=== PATIENT | female | born 1975 | race Caucasian/White ===

== ENCOUNTER 2018-07-20 15:00 | Outpatient (CLI) | payer BC | END 2018-07-20 15:01 | disposition home or self-care (01) | LOC: DTY/OP 15:00 | PROVIDERS: ATTEND Surgery | DX: I10 Essential (primary) hypertension (principal) | CPT/HCPCS: 97802 ==

== ENCOUNTER 2018-12-17 06:40 | Outpatient (CLI) | payer BC ==
[2018-12-17 10:20] LABS: #Basophils 0.1 thou/uL (0.0-0.2); #Eosinphils 0.2 thou/uL (0.0-0.7); #Lymphocytes 1.8 thou/uL (1.20-3.40); #Monocytes 0.8 thou/uL (0.11-0.59); #Neutrophils 5.5 thou/uL (1.40-6.50); %Basophils 1.1 % (0.0-1.0); %Eosinophils 2.8 % (0.0-10.0); %Lymphocytes 21.1 % (21.0-51.0); %Monocytes 9.4 % (0.0-10.0); %Neutrophils 65.6 % (42.0-75.0); Hemoglobin 13.9 g/dL (12.0-16.0); Mean Corpuscular HGB CONC 31.2 g/dL (32.0-36.0); Mean Corpuscular Hemoglobin 25.8 pg (27.0-31.0); Mean Corpuscular Volume 82.7 fL (78.0-98.0); Platelet Count 229 thou/uL (130-400); RBC Distribution Width 14.8 % (11.5-14.5); Red Blood Cell (RBC) Count 5.39 mill/uL (4.20-5.40); White Blood Cell (WBC) Count 8.4 thou/uL (4.8-10.8)
[2018-12-17 10:35] LABS: Hemoglobin A1c 7.7 % (4.0-6.0)
[2018-12-17 10:47] LABS: ALT (SGPT) 18 U/L (8-55); AST (SGOT) 29 U/L (5-34); Albumin 3.7 g/dL (3.5-5.0); Alkaline Phosphatase 59 U/L (40-150); Anion Gap 10 mmol/L (10-20); BUN (Urea Nitrogen) 12 mg/dL (7.0-18.7); Bilirubin, Direct 0.2 mg/dL (0.1-0.3); Bilirubin, Total 0.4 mg/dL (0.2-1.2); Calc. Creatinine Clearance 0 mL/min (70-130); Calcium 9.5 mg/dL (7.8-10.44); Carbon Dioxide 29 mmol/L (22-29); Chloride 100 mmol/L (98-107); Estimated GFR-MDRD 84; Globulin 3.5 g/dL (2.4-3.5); Glucose 137 mg/dL (70-105); Potassium 3.9 mmol/L (3.5-5.1); Protein, Total 7.2 g/dL (6.0-8.3); Sodium 135 mmol/L (136-145)
--- NOTE | 2018-12-17 11:50 | RAD ---
TWO VIEWS CHEST: DATE: 12/17/2018. PROVIDED CLINICAL HISTORY: Preop. FINDINGS: No comparisons. Cardiac silhouette appears enlarged. No focal consolidation, pleural fluid, or pneu mothorax apparent. IMPRESSION: Cardiomegaly without evidence for an acute cardiopulmonary process. POS: IJLL
--- NOTE | 2018-12-22 12:42 | EKG ---
Test Reason : Blood Pressure : / mmHG Vent. Rate : 076 BPM Atrial Rate : 076 BPM P-R Int : 154 ms QRS Dur : 094 ms QT Int : 400 ms P-R-T Axes : 060 102 043 degrees QTc Int : 450 ms Normal sinus rhythm Incomplete right bundle branch block Possible Right ventricular hypertrophy Abnormal ECG No previous ECGs available Confirmed by DR. Becky BECKETT ([id number]) on 12/22/2018 12:42:07 PM Referred By: BRITTNY Confirmed By:DR. Becky BECKETT
== END 2018-12-17 06:41 | disposition home or self-care (01) ==
LOC: LABBT 06:40 → SDC 06:41
PROVIDERS: ATTEND Surgery
DX: Z01.818 Encounter for other preprocedural examination (principal); E66.01 Morbid (severe) obesity due to excess calories
CPT/HCPCS: 71046; 80053; 80076; 83036; 85025; 93005; 93010

== ENCOUNTER 2018-12-17 09:30 | Inpatient (IN) | payer BC ==
[2018-12-17 09:40] VITALS: BMI 52.8
[2018-12-21] MEDS ORDERED: Heparin 5,000 UNITS/ML VIAL ONE (08:36)
[2018-12-21] MEDS ORDERED: CEFAZOLIN 2 GM/50 ML BAG ONE (08:36)
[2018-12-21] MEDS ORDERED: Scopolamine 1.5 mg/72 hour Patch ONE (08:37)
[2018-12-21] MEDS ORDERED: Midazolam HCl 2 mg/2 ml Vial ONE (09:33)
[2018-12-21] MEDS ORDERED: Fentanyl 100 MCG/2 ML VIAL ONE ×3 (09:49→12:24)
[2018-12-21] MEDS ORDERED: Bupivacaine HCl 0.5%/Epinephrine 1:200,000/PF 30 ml Vial ONE (09:50)
[2018-12-21] MEDS ORDERED: Lidocaine 1% PF 5 ML VIAL ONE (10:51)
[2018-12-21] MEDS ORDERED: Dexamethasone 20 MG/5 ML VIAL ONE (10:51)
[2018-12-21] MEDS ORDERED: PROPOFOL 200 MG/20 ML VIAL ONE (10:51)
[2018-12-21] MEDS ORDERED: Rocuronium Bromide 10 MG/ML (10ML VIAL) ONE (10:51)
[2018-12-21] MEDS ORDERED: Ondansetron PF 4 MG/2 ML Vial ONE (10:51)
[2018-12-21] MEDS ORDERED: Ondansetron HCl/PF 4 MG/2 ML Vial IVP PRN (11:14)
[2018-12-21] MEDS ORDERED: Promethazine HCl 25 MG/ML VIAL IM PRN ×3 (11:14→14:02)
[2018-12-21] MEDS ORDERED: Promethazine HCl 25 MG/ML VIAL SLOW IVP PRN (11:14)
[2018-12-21] MEDS ORDERED: Promethazine HCl 25 MG/ML VIAL ONE (11:39)
[2018-12-21] MEDS ORDERED: Zolpidem Tartrate 5 MG TAB PO PRN (12:02)
[2018-12-21] MEDS ORDERED: diphenhydrAMINE 25 MG CAP PO PRN (12:02)
[2018-12-21] MEDS ORDERED: diphenhydrAMINE 50 MG/ML VIAL IM PRN (12:02)
[2018-12-21] MEDS ORDERED: fentaNYL Citrate/PF 2,000 MCG in Sodium Chloride 0.9% 60 ML IV PRN (12:02)
[2018-12-21] MEDS ORDERED: Naloxone HCl 0.4 mg/ml Vial IV PRN (12:02)
[2018-12-21] MEDS ORDERED: Ondansetron PF 4 MG/2 ML Vial IVP PRN ×2 (12:02→14:02)
[2018-12-21] MEDS ORDERED: diphenhydrAMINE 50 MG/ML VIAL IVP PRN ×2 (12:02→14:02)
--- NOTE | 2018-12-21 12:12 | OP ---
DATE OF PROCEDURE: 12/21/2018 PREOPERATIVE DIAGNOSES: 1. Morbid obesity with a body mass index of 52. 2. Hypertension. POSTOPERATIVE DIAGNOSES: 1. Morbid obesity with a body mass index of 52. 2. Hypertension. PROCEDURES PERFORMED: 1. Laparoscopic sleeve gastrectomy with [place] staple line reinforcements and 38-Malian bougie. 2. Esophagogastroduodenoscopy. ANESTHESIA: General. COMPLICATIONS: None. SPECIMENS: Stomach. FINDINGS: Normal postoperative EGD. DESCRIPTION OF PROCEDURE: The patient was taken to the operating room and laid supine on the operating room table. After general anesthetic was obtained, the arms and legs were double strapped to bariatric table. OG tube was used to decompress the stomach. Left subcostal 5 mm Optiview trocar was placed in usual fashion and high-flow pneumoperitoneum was obtained. Left and right abdominal 12 mm ports as well as a right subcostal 5 mm port were placed in direct visualization. 5 mm incision was made at the xiphoid and Sahra was used to raise the liver off the GE junction. Short gastrics were taken down from mid stomach to the left diomedes of the diaphragm using LigaSure. Left diomedes, angle of His, fundus of the stomach were completely dissected. Short gastrics were taken down to a distance of 6 cm proximal to the pylorus. Multiple loads of the Mercedes stapling device were used to perform the sleeve. A 38-bougie was brought in and its tip left in the antrum of the stomach. The first fire was up from 6 cm proximal to the pylorus angled up towards the incisura. Care was taken to avoid being too close to incisura. Multiple loads were then fired up along the bougie. Stomach was completely transected at the angle of His. Stomach was removed from the left abdominal incision. This fascial defect was closed using GraNee needle and 0 Vicryl tie. There was no bleeding on the staple line. No injury to any intraabdominal structures. All port sites were infiltrated using local anesthetic. EGD scope was passed through esophagus and stomach to the level of duodenum without obstruction or stricture. There was no air leakage through the staple line. EGD scope was used to decompress the stomach, it was pulled and removed. The Sahra retractor was removed under direct visualization without bleeding. All ports were removed under direct visualization without bleeding. Pneumoperitoneum was let down. The Vicryl was used to close the fascial defect from the left abdominal incision. All incisions were irrigated and closed using 4-0 Monocryl and Dermabond. The patient was sent to Recovery in stable condition. All instrument counts, needle counts, and lap counts were correct. Job ID: [id number]
[2018-12-21] MEDS ORDERED: Communication Order-Pharmacy FS SCH (12:15)
[2018-12-21] MEDS ORDERED: Dextrose 5% in Water 1,000 ML IV PRN (14:02)
[2018-12-21] MEDS ORDERED: hydrALAZINE 20 MG/ML VIAL SLOW IVP PRN (14:02)
[2018-12-21] MEDS ORDERED: Dextrose 50% Abboject 50 ML SYRINGE SLOW IVP PRN (14:02)
[2018-12-21] MEDS ORDERED: Hydrocodone-Acetamin 15 ML UDCUP PO PRN (14:02)
[2018-12-21] MEDS ORDERED: Sodium Chloride 0.9% (PF) 10 ML VIAL FS PRN (14:24)
[2018-12-21] MEDS: D5 1/2 NS w/20 mEq KCL 1,000 ML IV SCH ×2 (16:18→23:21)
[2018-12-21] MEDS: Acetaminophen 1,000 MG in Premix Bag 1 BAG IVPB SCH ×2 (17:56→23:22)
[2018-12-21] MEDS ORDERED: Enoxaparin Sodium 40 MG/0.4 ML SYRINGE SC SCH (21:00)
[2018-12-22 05:11] LABS: #Lymphocytes 1.1 thou/uL (1.20-3.40); #Monocytes 1.2 thou/uL (0.11-0.59); #Neutrophils 10.5 thou/uL (1.40-6.50); %Basophils 0.1 % (0.0-1.0); %Eosinophils 0.1 % (0.0-10.0); %Lymphocytes 8.4 % (21.0-51.0); %Monocytes 9.5 % (0.0-10.0); %Neutrophils 81.9 % (42.0-75.0); Hemoglobin 13.5 g/dL (12.0-16.0); Mean Corpuscular HGB CONC 30.9 g/dL (32.0-36.0); Mean Corpuscular Hemoglobin 26.2 pg (27.0-31.0); Mean Corpuscular Volume 84.8 fL (78.0-98.0); Mean Platelet Volume 7.3 fL (7.4-10.4); Platelet Count 252 thou/uL (130-400); RBC Distribution Width 14.6 % (11.5-14.5); Red Blood Cell (RBC) Count 5.17 mill/uL (4.20-5.40); White Blood Cell (WBC) Count 12.8 thou/uL (4.8-10.8)
[2018-12-22] MEDS: Acetaminophen 1,000 MG in Premix Bag 1 BAG IVPB SCH ×2 (05:20→11:43)
[2018-12-22 05:28] LABS: Anion Gap 13 mmol/L (10-20); BUN (Urea Nitrogen) 7 mg/dL (7.0-18.7); Calc. Creatinine Clearance 207 mL/min (70-130); Calcium 8.6 mg/dL (7.8-10.44); Carbon Dioxide 24 mmol/L (22-29); Chloride 99 mmol/L (98-107); Estimated GFR-MDRD 80; Glucose 160 mg/dL (70-105); Potassium 5.3 mmol/L (3.5-5.1); Sodium 131 mmol/L (136-145)
[2018-12-22] MEDS: D5 1/2 NS w/20 mEq KCL 1,000 ML IV SCH (08:27)
[2018-12-22] MEDS ORDERED: Estradiol 1 MG TAB PO SCH (09:00)
[2018-12-22] MEDS ORDERED: Losartan 25 MG TAB PO SCH (09:00)
[2018-12-22] MEDS ORDERED: Pantoprazole 40 MG VIAL IVP SCH (09:00)
[2018-12-22] MEDS ORDERED: Hydrocodone-Acetamin 15 ML UDCUP PO PRN (09:19)
--- NOTE | 2018-12-22 11:39 | DIS ---
DATE OF ADMISSION: 12/21/2018 DATE OF DISCHARGE: 12/22/2018 ADMIT DIAGNOSES: Morbid obesity and hypertension. DISCHARGE DIAGNOSES: Morbid obesity and hypertension. PROCEDURES: Laparoscopic sleeve gastrectomy by Dr. Gonzalez without complication. CONDITION ON DISCHARGE: Improved. STAFF: Campos Gonzalez MD HOSPITAL COURSE: On postop day 1, the patient is doing well. She is tolerating a liquid diet. She is ambulated. She is discharged home. She will follow up with me in 2 weeks. Job ID: [id number]
[2018-12-22 11:42] VITALS: BP 113/73; TEMP 98.4
== END 2018-12-22 14:05 | disposition home or self-care (01) | DRG 621 ==
LOC: SURG A 12-21 08:08
PROVIDERS: ADMIT Surgery; ATTEND Surgery
PROC: 0DB64Z3 Excision of Stomach, Percutaneous Endoscopic Approach, Vertical (ICD-10-PCS; principal; 2018-12-21)
PROC: 0DJ08ZZ Inspection of Upper Intestinal Tract, Via Natural or Artificial Opening Endoscopic (ICD-10-PCS; 2018-12-21)
DX: E66.01 Morbid (severe) obesity due to excess calories (principal); I10 Essential (primary) hypertension; Z68.43 Body mass index [BMI] 50.0-59.9, adult
CPT/HCPCS: 36415; 80048; 85025; 88307; 88312; C9113; J0131; J0670; J1644; J1650; J2250; J2405; J2550; J3010; J7050

== ENCOUNTER 2019-01-25 10:14 | Day surgery (SDC) | payer BC | END 2019-01-25 11:43 | disposition home or self-care (01) | LOC: SCSER/OP 10:14 | PROVIDERS: ATTEND Surgery | DX: Z29.9 Encounter for prophylactic measures, unspecified (principal); Z79.899 Other long term (current) drug therapy ==

== ENCOUNTER 2020-04-11 12:16 | Outpatient (CLI) | payer BC ==
--- NOTE | 2020-04-11 13:03 | MMO ---
Bilateral MAMMO Bilat Screen [facility]. CLINICAL HISTORY: Patient is 45 years old and is seen for screening. The patient has no family history of breast cancer. The patient has no personal history of cancer. VIEWS: The views performed were: bilateral craniocaudal with tomosynthesis and bilateral mediolateral oblique with tomosynthesis. FILMS COMPARED: The present examination has been compared to a prior imaging study performed at [facility] on 05/13/2017. This study has been interpreted with the assistance of computer-aided detection. MAMMOGRAM FINDINGS: There are scattered fibroglandular densities. There are no suspicious masses, suspicious calcifications, or new areas of architectural distortion. IMPRESSION: THERE IS NO MAMMOGRAPHIC EVIDENCE OF MALIGNANCY. A ROUTINE FOLLOW-UP MAMMOGRAM IN 1 YEAR IS RECOMMENDED. THE RESULTS OF THIS EXAM WERE SENT TO THE PATIENT. ACR BI-RADS Category 1 - Negative MAMMOGRAPHY NOTE: 1. A negative mammogram report should not delay a biopsy if a dominant of clinically suspicious mass is present. 2. Approximately 10% to 15% of breast cancers are not detected by mammography. 3. Adenosis and dense breasts may obscure an underlying neoplasm. Reported by: OBDULIO BARRERA MD Electonically Signed: [id number]
== END 2020-04-11 12:17 | disposition home or self-care (01) ==
LOC: BICMAMMO 12:16
PROVIDERS: ATTEND Family Medicine
DX: Z12.31 Encounter for screening mammogram for malignant neoplasm of breast (principal)
CPT/HCPCS: 77063; 77067

== ENCOUNTER 2021-05-15 10:47 | Outpatient (CLI) | payer BC | END 2021-05-15 10:48 | disposition home or self-care (01) | LOC: BICMAMMO 10:47 | PROVIDERS: ATTEND Family Medicine | DX: Z12.31 Encounter for screening mammogram for malignant neoplasm of breast (principal); Z80.3 Family history of malignant neoplasm of breast | CPT/HCPCS: 77063; 77067 ==

== ENCOUNTER 2021-08-12 12:13 | Outpatient (CLI) | payer BC ==
[2021-08-12 23:35] LABS: SARS-CoV-2 PCR by NAA Not Detected (NotDetected)
== END 2021-08-12 12:14 | disposition home or self-care (01) ==
LOC: LABBT 12:13
PROVIDERS: ATTEND Specialist
DX: Z01.812 Encounter for preprocedural laboratory examination (principal); H60.93 Unspecified otitis externa, bilateral; L72.3 Sebaceous cyst; L29.9 Pruritus, unspecified; Z20.822 Contact with and (suspected) exposure to COVID-19
CPT/HCPCS: 85014; U0003; U0005

== ENCOUNTER 2021-08-15 09:41 | Day surgery (SDC) | payer BC ==
[2021-06-11 12:07] VITALS: BMI 39.4
[2021-08-15] MEDS ORDERED: Fentanyl 100 MCG/2 ML VIAL ONE ×2 (11:40)
[2021-08-15] MEDS ORDERED: Midazolam HCl 2 mg/2 ml Vial ONE (11:40)
[2021-08-15] MEDS ORDERED: Bacitracin Zinc Ointment 30 gm TUBE ONE (11:44)
[2021-08-15] MEDS ORDERED: Ciprofloxacin 0.2% Otic (0.25ML CONTAINER) ONE (11:44)
[2021-08-15] MEDS ORDERED: EPINEPHrine 1 MG/ML AMP ONE (11:44)
[2021-08-15] MEDS ORDERED: Lidocaine 1% w/Epinephrine 1:100K 20 ML VIAL ONE (11:51)
[2021-08-15] MEDS ORDERED: Dexamethasone 20 MG/5 ML VIAL ONE (12:45)
[2021-08-15] MEDS ORDERED: Rocuronium Bromide 10 MG/ML (10ML VIAL) ONE (12:45)
[2021-08-15] MEDS ORDERED: Succinylcholine 200 MG/10 ml SYRINGE FS ONE (12:45)
[2021-08-15] MEDS ORDERED: PROPOFOL 200 MG/20 ML VIAL ONE (12:45)
[2021-08-15] MEDS ORDERED: Ondansetron PF 4 MG/2 ML Vial ONE (12:45)
[2021-08-15] MEDS ORDERED: Lidocaine 1% PF 5 ML VIAL ONE (12:45)
== END 2021-08-15 14:50 | disposition home or self-care (01) ==
LOC: SDC 09:41
PROVIDERS: ATTEND Specialist
PROC: 09B40ZZ Excision of Left External Auditory Canal, Open Approach (ICD-10-PCS; principal; 2021-08-15)
DX: D21.0 Benign neoplasm of connective and other soft tissue of head, face and neck (principal); Z79.899 Other long term (current) drug therapy; Z98.84 Bariatric surgery status
CPT/HCPCS: J0171; J1100; J2250; J2405; J2704; J3010

== ENCOUNTER 2022-05-20 12:54 | Outpatient (CLI) | payer BC | END 2022-05-20 12:55 | disposition home or self-care (01) | LOC: BICMAMMO 12:54 | PROVIDERS: ATTEND Family Medicine | DX: Z12.31 Encounter for screening mammogram for malignant neoplasm of breast (principal); Z80.3 Family history of malignant neoplasm of breast | CPT/HCPCS: 77063; 77067 ==

== ENCOUNTER 2023-01-16 03:26 | Emergency (ER) | payer BC ==
[2023-01-16] MEDS ORDERED: Ketorolac Tromethamine 30 MG/ML VIAL ONE (04:02)
== END 2023-01-16 04:32 | disposition home or self-care (01) ==
LOC: ERS 03:26
DX: H60.91 Unspecified otitis externa, right ear (principal); K05.30 Chronic periodontitis, unspecified
CPT/HCPCS: 96372; 99282; J1885

== ENCOUNTER 2023-06-09 11:44 | Outpatient (CLI) | payer BC | END 2023-06-09 11:45 | disposition home or self-care (01) | LOC: BICMAMMO 11:44 | PROVIDERS: ATTEND Family Medicine | DX: Z12.31 Encounter for screening mammogram for malignant neoplasm of breast (principal); Z80.3 Family history of malignant neoplasm of breast | CPT/HCPCS: 77063; 77067 ==

== ENCOUNTER 2023-10-09 05:08 | Emergency (ER) | payer BC ==
[2023-10-09 05:52] LABS: Hematocrit 43.8 % (36.0-47.0); Hemoglobin 14.3 g/dL (12.0-16.0); Manual Diff?? YES; Mean Corpuscular HGB CONC 32.6 g/dL (32.0-36.0); Mean Corpuscular Hemoglobin 27.3 pg (27.0-31.0); Mean Corpuscular Volume 83.7 fl (78.0-98.0); Mean Platelet Volume 9.4 fL (7.4-10.4); Platelet Count 171 10x3/uL (130-400); RBC Distribution Width 14.2 % (11.5-14.5); Red Blood Cell (RBC) Count 5.23 mill/uL (4.20-5.40); White Blood Cell (WBC) Count 7.8 10x3/uL (4.8-10.8)
[2023-10-09 06:05] LABS: Delete Auto Diff?? YES
[2023-10-09 06:22] LABS: ALT (SGPT) 19 U/L (8-55); AST (SGOT) 21 U/L (5-34); Albumin 3.9 g/dL (3.5-5.0); Alkaline Phosphatase 58 U/L (40-110); Anion Gap 14 mmol/L (10-20); BUN (Urea Nitrogen) 9 mg/dL (7.0-18.7); Bilirubin, Total 0.5 mg/dL (0.2-1.2); CK (CPK) 30 U/L (29-168); Calc. Creatinine Clearance 0 mL/min (70-130); Carbon Dioxide 26 mmol/L (22-29); Chloride 101 mmol/L (98-107); Estimated GFR 68; Globulin 3.6 g/dL (2.4-3.5); Glucose 85 mg/dL (70-105); Magnesium 1.7 mg/dL (1.6-2.6); Potassium 4.2 mmol/L (3.5-5.1); Protein, Total 7.5 g/dL (6.0-8.3); Sodium 137 mmol/L (136-145)
[2023-10-09 06:45] LABS: Bilirubin Negative (Negative); Blood, Urine Negative (Negative); CAUTI Indications for Culture Dysuria,urgency,freq; Clarity Clear (Clear); Glucose, Urine (Dipstick) Normal (Negative); Ketone, Urine 100 mg/dL (Negative); Leukocyte Negative Leu/uL (Negative); Nitrite Negative (Negative); Protein, Urine (Dipstick) 30 mg/dL (Neg-Trace); Specific Gravity, Urine 1.027 (1.002-1.036)
[2023-10-09 06:46] LABS: Bacteria/HPF 1+ HPF (None Seen); Urine Culture Reflex No No
[2023-10-09 06:50] LABS: Band 4 % (5-11); Eosinophils 1 % (0-10); Lymphocytes 11 % (21-51); Monocytes 20 % (0-10); Neutrophil 64 % (42-75)
== END 2023-10-09 07:17 | disposition home or self-care (01) ==
LOC: ERS 05:08
DX: R63.0 Anorexia (principal); R43.2 Parageusia
CPT/HCPCS: 36415; 80053; 81001; 82550; 83605; 83735; 85025; 99284

== ENCOUNTER 2024-04-22 15:50 | Outpatient (CLI) | payer BC ==
[2024-04-22 17:18] LABS: #Basophils 0.05 10x3/uL (0.0-0.2); #Eosinphils 0.26 10x3/uL (0.0-0.5); #Monocytes 0.74 10x3/uL (0.0-1.1); #Neutrophils 4.69 10x3/uL (1.5-8.4); %Basophils 0.6 % (0.0-2.0); %Eosinophils 3.1 % (0.0-6.0); %Lymphocytes 30.5 % (18.0-47.0); %Monocytes 8.9 % (0.0-10.0); %Neutrophils 56.7 % (40.0-75.0); Hematocrit 42.3 % (34.9-44.5); Hemoglobin 13.9 g/dL (12.0-15.5); Mean Corpuscular HGB CONC 32.9 g/dL (32.0-36.0); Mean Corpuscular Hemoglobin 27.5 pg (27.0-33.0); Mean Corpuscular Volume 83.8 fL (81.6-98.3); Mean Platelet Volume 9.7 fL (7.4-10.4); Platelet Count 256 10x3/uL (150-450); RBC Distribution Width 13.9 % (11.5-14.5); Red Blood Cell (RBC) Count 5.05 10x6/uL (3.90-5.03); White Blood Cell (WBC) Count 8.3 10x3/uL (3.5-10.5)
[2024-04-22 17:20] LABS: ALT (SGPT) 28 U/L (8-55); AST (SGOT) 27 U/L (5-34); Albumin 3.9 g/dL (3.5-5.0); Alkaline Phosphatase 60 U/L (40-110); Anion Gap 12 mmol/L (10-20); BUN (Urea Nitrogen) 17 mg/dL (7.0-18.7); Bilirubin, Direct 0.2 mg/dL (0.1-0.3); Bilirubin, Total 0.3 mg/dL (0.2-1.2); Calc. Creatinine Clearance 0 mL/min (70-130); Calcium 9.2 mg/dL (7.8-10.44); Carbon Dioxide 26 mmol/L (22-29); Chloride 105 mmol/L (98-107); Estimated GFR 79; Glucose 91 mg/dL (70-105); Protein, Total 7.2 g/dL (6.0-8.3); Sodium 139 mmol/L (136-145)
== END 2024-04-22 15:51 | disposition home or self-care (01) ==
LOC: LABBT 15:50
PROVIDERS: ATTEND Surgery
DX: Z01.812 Encounter for preprocedural laboratory examination (principal); K80.20 Calculus of gallbladder without cholecystitis without obstruction
CPT/HCPCS: 80048; 80076; 85025

== ENCOUNTER 2024-04-27 11:17 | Day surgery (SDC) | payer BC ==
[2024-04-22 16:39] VITALS: BMI 36.6
[2024-04-27] MEDS ORDERED: CEFAZOLIN 2 GM VIAL ONE (13:19)
[2024-04-27] MEDS ORDERED: Sodium Chloride 0.9% 100 ML ONE (13:19)
[2024-04-27] MEDS ORDERED: Lidocaine 1% PF 5 ML VIAL ONE (13:33)
[2024-04-27] MEDS ORDERED: PROPOFOL 20 ML ONE (13:33)
[2024-04-27] MEDS ORDERED: fentaNYL PF 100 MCG/2 ML SYRINGE ONE (13:33)
[2024-04-27] MEDS ORDERED: Rocuronium Bromide 10 MG/ML (10ML VIAL) ONE (13:33)
[2024-04-27] MEDS ORDERED: ePHEDrine Sulfate 50 MG/10 ML VIAL ONE (14:07)
[2024-04-27] MEDS ORDERED: Indocyanine Green 25 MG/10 ML VIAL ONE (14:28)
[2024-04-27] MEDS ORDERED: Bupivacaine 0.25% HCL 30 ML VIAL ONE (14:29)
[2024-04-27] MEDS ORDERED: EPINEPHrine 1 MG/ML VIAL ONE (14:29)
[2024-04-27] MEDS ORDERED: Ondansetron PF 4 MG/2 ML Vial ONE ×2 (14:37→15:45)
[2024-04-27] MEDS ORDERED: SUGAMMADEX SODIUM 200 MG/2 ML VIAL ONE ×2 (14:39→16:13)
[2024-04-27] MEDS ORDERED: Dexamethasone 20 MG/5 ML VIAL ONE (15:45)
[2024-04-27] MEDS ORDERED: Ketorolac Tromethamine 30 MG (1 mL) VIAL ONE (15:45)
[2024-04-27] MEDS ORDERED: fentaNYL 50 mcg/mL 1 mL Vial ONE ×2 (16:57→17:22)
[2024-04-27] MEDS ORDERED: HYDROcodone/Acetaminophen 5/325 mg Tablet ONE (17:50)
== END 2024-04-27 18:12 | disposition home or self-care (01) ==
LOC: SDC 11:17
PROVIDERS: ATTEND Surgery
PROC: 0FT44ZZ Resection of Gallbladder, Percutaneous Endoscopic Approach (ICD-10-PCS; principal; 2024-04-27)
DX: K80.10 Calculus of gallbladder with chronic cholecystitis without obstruction (principal); K82.8 Other specified diseases of gallbladder; Z90.710 Acquired absence of both cervix and uterus; Z98.84 Bariatric surgery status
CPT/HCPCS: C1889; J0171; J0665; J1100; J1885; J2405; J2704; J3010; J3490

== ENCOUNTER 2025-06-26 13:59 | Outpatient (CLI) | payer BC | END 2025-06-26 14:00 | disposition home or self-care (01) | LOC: BICMAMMO 13:59 | PROVIDERS: ATTEND Family Medicine | DX: Z12.31 Encounter for screening mammogram for malignant neoplasm of breast (principal); Z80.3 Family history of malignant neoplasm of breast | CPT/HCPCS: 77063; 77067 ==

== ENCOUNTER 2025-08-08 07:55 | Outpatient (CLI) | payer BC | END 2025-08-08 07:56 | disposition home or self-care (01) | LOC: BICCT 07:55 | PROVIDERS: ATTEND Family Medicine | DX: R51.9 Headache, unspecified (principal) | CPT/HCPCS: 70450 ==